=== PATIENT | female | born 1950 | race Caucasian/White ===

== ENCOUNTER → 2016-08-20 | Outpatient (CLI) | payer MEDICARE, OTHER, MEDICAID ==
[~2016-08-20] MED LIST: ALBUTEROL0.63 MG/3 IH; ALBUTEROL2.5 MG/3 M IH; AQUAPHOR OINTM396 GM TOP; AVONEX ADM30 MCG/KIT IM; AZO-CRANBERRY450 MG PO; BACTRIM DS 8001 TA1 PO; BENADRYL25 M2 PO; BENADRYL50 MG PO; BISACODYL10 MG RC; CALCIUM 500 +1 EAC1 PEG; CALCIUM CARBON650 M2 PO; CIPRO 500MG TA500 MG PO; COLACE 100100 MG/CAP PO; COMPAZINE10 M2 PO; COREG3.125 MG PO; COUMADIN4 MG PO; COUMADIN5 MG PO; COUMADIN6 MG PEG; COUMADIN6 MG PO; COUMADIN7.5 MG PO; DITROPAN XL10 MG PO; DULCOLAX10 M1 REC; ED ZOFRAN4 TAB/BOTT PO; GOOD NEIGHBOR600 MG PO; IMODIUM2 M1 PO; IMODIUM2 MG PEG; IPRATROPIUM BROM3 M1 IH; JEVITY 1.2 CAL240 ML PEG; K-DUR 10 MEQ T10 MEQ PO; K-SOL20 MEQ/15 PEG; KLOR-CON 1010 MEQ PO; LASIX 40MG TABL40 MG PO; LASIX20 MG PO; LIORESAL 1010 MG/TAB PO; LOVENOX100 MG/M1 IJ; MAALOX ADVANCE148 ML PO; MAALOX ANTACID1 TAB PEG; MAALOX ANTACID1 TAB PO; MAGNESIUM OXID400 MG PEG; MAGNESIUM OXID400 MG PO; METOPROLOL TART25 MG PO; MILK OF MA400 MG/51 PO; MIRALAX 17GM PK1 PKT PO; NIZORAL CREAM15 GM TOP; NOVAPLUS L40 MG/0.4 SC; NYSTATIN CREAM15 GM TOP; OSCAL 500 TAB500 MG PO; PAIN RELIEVER500 M2 PEG; PANCREASE PEG; POTASSIUM CL 220 MEQ PO; PROSTAT PEG; PROTONIX40 MG PO; SINGULAIR; SINGULAIR PEG; SODIUM BIC650 MG/TAB PEG; SUDAFED 12HR120 MG PO; TAMIFLU 75MG75 MG PO; TAMOXIFEN CITRA20 MG PO; THERAGRAN1 TA1 PO; TRANSDERM0.33 MG/24 TOP; TYLENOL 325MG325 M1 PO; TYLENOL 325MG325 MG PO; VIBRAMYCIN100 MG PO
== END ==
LOC: LAB 05:10
DX: Z51.81 Encounter for therapeutic drug level monitoring (principal); Z79.01 Long term (current) use of anticoagulants; I82.409 Acute embolism and thrombosis of unspecified deep veins of unspecified lower extremity

== ENCOUNTER → 2016-08-27 | Outpatient (CLI) | payer MEDICARE, OTHER, MEDICAID | LOC: LAB 05:15 | DX: Z86.718 Personal history of other venous thrombosis and embolism (principal) ==

== ENCOUNTER → 2016-09-03 | Outpatient (CLI) | payer MEDICARE, OTHER, MEDICAID | LOC: LAB 06:15 | DX: Z51.81 Encounter for therapeutic drug level monitoring (principal); Z79.01 Long term (current) use of anticoagulants; Z86.718 Personal history of other venous thrombosis and embolism ==

== ENCOUNTER → 2016-09-10 | Outpatient (CLI) | payer MEDICARE, OTHER, MEDICAID | LOC: LAB 06:25 | DX: Z79.01 Long term (current) use of anticoagulants (principal) ==

== ENCOUNTER → 2016-09-17 | Outpatient (CLI) | payer MEDICARE, OTHER, MEDICAID | LOC: LAB 06:20 | DX: Z51.81 Encounter for therapeutic drug level monitoring (principal); Z79.01 Long term (current) use of anticoagulants; Z86.718 Personal history of other venous thrombosis and embolism ==

== ENCOUNTER → 2016-09-24 | Outpatient (CLI) | payer MEDICARE, OTHER, MEDICAID | LOC: LAB 05:55 | DX: Z79.01 Long term (current) use of anticoagulants (principal) ==

== ENCOUNTER → 2016-10-01 | Outpatient (CLI) | payer MEDICARE, OTHER, MEDICAID | LOC: LAB 05:25 | DX: Z86.718 Personal history of other venous thrombosis and embolism (principal) ==

== ENCOUNTER → 2016-10-08 | Outpatient (CLI) | payer MEDICARE, OTHER, MEDICAID | LOC: LAB 05:50 | DX: Z86.718 Personal history of other venous thrombosis and embolism (principal); Z79.01 Long term (current) use of anticoagulants ==

== ENCOUNTER 2016-11-02 09:43 | Emergency (ER) | payer MEDICARE, OTHER, MEDICAID ==
[2016-04-06 12:40] VITALS: BP 67/39
== END 2016-11-02 11:43 | disposition expired ==
LOC: ED 09:43
DX: C80.1 Malignant (primary) neoplasm, unspecified; C79.60 Secondary malignant neoplasm of unspecified ovary; G35 Multiple sclerosis